=== PATIENT | female | born 1990 | race Caucasian/White ===

== ENCOUNTER 2020-01-20 04:05 | Emergency (ER) | payer OTHER ==
[~2020-01-20] VITALS: Ht 180.3 cm; Wt 169.6 kg
[2020-01-20 04:13] VITALS: Ht 180.3 cm; Wt 169.6 kg
[2020-01-20 05:30] LABS: BASOPHIL % 0.9 % (0-2); RED CELL DISTRIBUTION WIDTH 14.5 % (11.5-14.5)
[2020-01-20 05:31] LABS: microscopic required? YES; urine erythrocyte 3+ (NEGATIVE)
[2020-01-20 05:34] LABS: PLATELET COUNT 439 x10^3mcL (130-400)
[2020-01-20 05:35] LABS: CARBON DIOXIDE 26.1 mmol/L (21-32); CHLORIDE SERUM 101 mmol/L (98-107); CREATININE SERUM 0.9 mg/dL (0.6-1.0); GFR1 > 60 mL/min; GLUCOSE SERUM 140 mg/dL (74-106); POTASSIUM SERUM 3.5 mmol/L (3.5-5.1); SODIUM SERUM 137 mmol/L (136-145)
[2020-01-20 05:43] LABS: ALKALINE PHOSPHATASE 94 U/L (46-116); ALT/SGPT 39 U/L (14-59); AST/SGOT 27 U/L (15-37); BILIRUBIN TOTAL 0.2 mg/dL (0.20-1.00); LIPASE 79 IU/L (73-393); TOTAL PROTEIN, SERUM 7.8 g/dL (6.4-8.2)
[2020-01-20 05:48] LABS: ALBUMIN 3.2 g/dL (3.4-5.0)
[2020-01-20 06:54] VITALS: BP 134/73
== END 2020-01-20 06:54 | disposition home or self-care (01) ==
LOC: ED 04:05
PROVIDERS: Student in an Organized Health Care Education/Training Program
DX: N12 Tubulo-interstitial nephritis, not specified as acute or chronic (principal); Z87.442 Personal history of urinary calculi
CPT/HCPCS: J0696; J1885; J7030; J7060

== ENCOUNTER 2020-06-21 22:41 | Emergency (ER) | payer OTHER ==
[~2020-06-21] VITALS: Ht 180.3 cm; Wt 170.1 kg
[2020-06-21 22:47] VITALS: Ht 180.3 cm; Wt 170.1 kg
[2020-06-21 23:34] LABS: RED CELL DISTRIBUTION WIDTH 14.5 % (12.3-17.7)
[2020-06-21 23:35] LABS: PLATELET COUNT 447 x10^3mcL (179-408)
[2020-06-21 23:44] LABS: CARBON DIOXIDE 26.5 mmol/L (21-32); CHLORIDE SERUM 103 mmol/L (98-107); GFR1 > 60 mL/min; GLUCOSE SERUM 120 mg/dL (74-106); POTASSIUM SERUM 3.6 mmol/L (3.5-5.1); SODIUM SERUM 140 mmol/L (136-145)
[2020-06-21 23:48] LABS: ALBUMIN 3.4 g/dL (3.4-5.0); ALKALINE PHOSPHATASE 102 U/L (46-116); ALT/SGPT 50 U/L (14-59); AST/SGOT 40 U/L (15-37); LIPASE 87 IU/L (73-393); TOTAL PROTEIN, SERUM 7.8 g/dL (6.4-8.2)
[2020-06-22 00:04] LABS: microscopic required? YES; urine erythrocyte NEGATIVE (NEGATIVE)
[2020-06-22] MEDS ORDERED: CEPHALEXIN750 MG PO (01:30)
[2020-06-22 01:33] VITALS: BP 136/82
== END 2020-06-22 01:42 | disposition home or self-care (01) ==
LOC: ED 22:41
PROVIDERS: Emergency Medicine
DX: N12 Tubulo-interstitial nephritis, not specified as acute or chronic (principal); N20.0 Calculus of kidney; Z87.442 Personal history of urinary calculi
CPT/HCPCS: J0696; J1885; J7030; J7060